=== PATIENT | male | born 1980 | race Caucasian/White ===

== ENCOUNTER 2024-04-30 14:57 | Outpatient (AMB) | payer MEDICARE, MEDICAID, SELFPAY ==
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
== END 2024-04-30 17:04 | disposition home or self-care (01) ==
LOC: HO.HMCFM 14:57
PROVIDERS: PCP Internal Medicine; Visit Provider Internal Medicine
DX: G82.20 Paraplegia, unspecified (principal); E46 Unspecified protein-calorie malnutrition; F33.41 Major depressive disorder, recurrent, in partial remission; L89.90 Pressure ulcer of unspecified site, unspecified stage; G89.4 Chronic pain syndrome

== ENCOUNTER → 2024-04-30 14:57 | Outpatient (BNVA) | payer MEDICARE, MEDICAID, SELFPAY | PROVIDERS: PCP Internal Medicine; Visit Provider Internal Medicine | DX: L89.309 Pressure ulcer of unspecified buttock, unspecified stage (principal); G82.50 Quadriplegia, unspecified; E46 Unspecified protein-calorie malnutrition; G89.4 Chronic pain syndrome; K59.09 Other constipation; F33.41 Major depressive disorder, recurrent, in partial remission; F41.9 Anxiety disorder, unspecified | CPT/HCPCS: 96127 ==

== ENCOUNTER 2025-01-22 16:36 | Outpatient (AMB) | payer MEDICARE, MEDICAID, SELFPAY ==
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
--- OUTSIDE RECORDS SUMMARY | 2025-01-22 18:39 | XMS_ITS | Clinical Summary ---
[facility] Address [address] [place] [address] Care Team Providers Care Research Associate Quality Control Qc Name Role Phone Unavailable Primary Care Provider Unavailabl e Allergies No known active allergies Medications Medication Sig Dispensed Refills Start Date End Date Status apixaban (Eliquis) 5 MG TABS tablet Eliquis 5 mg tablet 0 06/02/2021 A ctive ascorbic acid (VITAMIN C) 500 MG tablet Vitamin C With Gege Hips 500 mg tablet TAKE 1 TABLET BY MOUTH EVERY DAY 0 Active bisacodyl (DULCOLAX) 10 MG suppository Gentle Laxative (bisacodyl) 10 mg rectal suppository UNWRAP & INSERT1 SUPPOSITORY RECTALLY DAILY NEEDED FOR CONSTIPATION FOR 30 DAYS 0 Active buPROPion (ZYBAN) 150 MG 12 hr tablet bupropion HCl 150 mg tablet,12 hr sustained-release(sm oking deterrent) TAKE 1 TABLET BY MOUTH TWICE A DAY 0 Active busPIRone (BUSPAR) 30 MG tablet buspirone 30 mg tablet TAKE 1 TABLET BY MOUTH TWICE A DAY 0 08/02/2013 Active cephalexin (KEFLEX) 500 MG capsule TAKE 1 CAPSULE BY MOUTH 4 TIMES A DAY FOR 7 DAYS 0 09/23/2021 Active citalopram (CeleXA) 40 MG tablet citalopram 40 mg tablet 0 09/02/2014 Active clonazePAM (KlonoPIN) 1 MG tablet PLEASE SEE ATTACHED FOR DETAILED DIRECTIONS 0 08/03/2021 Active doxycycline (VIBRAMYCIN) 100 MG capsule doxycycline hyclate 100 mg capsule 0 Active Docusate Sodium (DSS) 100 MG CAPS docusate sodium 100 mg capsule TAKE 1 CAPSULE BY MOUTH EVERY DAY NEEDED FOR CONSTIPATION 0 08/17/2021 Active DULoxetine HCl 40 MG CPEP duloxetine 40 mg capsule,delayed release 0 Active gabapentin (NEURONTIN) 600 MG tablet gabapentin 600 mg tablet TAKE 2 TABLETS BY MOUTH 3 TIMES A DAY 0 12/26/2014 Active hydrOXYzine (ATARAX) 50 MG tablet hydroxyzine HCl 50 mg tablet TAKE 1 TABLET BY MOUTH 3 TIMES A DAY NEEDED FOR ANXIETY 0 08/25/2021 Active Inulin 1.5 g CHEW Chew 1.5 g by mouth. 0 10/09/2021 Active naproxen (NAPROSYN) 375 MG tablet naproxen 375 mg tablet 0 01/24/2015 Active Nepafenac (Ilevro) 0.3 % SUSP Ilevro 0.3 % eye drops,suspension INSTILL 1 DROP INTO AFFECTED EYE AT BEDTIME DIRECTED 0 Active OLANZapine (ZyPREXA) 5 MG tablet olanzapine 5 mg tablet TAKE 1 TABLET BY MOUTH EVERY DAY 0 10/09/2021 Active oxybutynin (DITROPAN-XL) 10 MG 24 hr tablet oxybutynin chloride ER 10 mg tablet,extended release 24 hr TAKE 1 TABLET BY MOUTH EVERY DAY DIRECTED 0 12/25/2019 Active polyethylene glycol (GaviLyte-G) 236 g solution GaviLyte-G 236 gram-22.74 gram-6.74 gram-5.86 gram oral solution TAKE DIRECTED 0 Active pregabalin (LYRICA) capsule 150 mg pregabalin 150 mg capsule TAKE 1 CAPSULE BY MOUTH TWICE A DAY 0 07/05/2021 Active senna (Senna-Time) 8.6 MG tablet senna 8.6 mg tablet TAKE 2 TABLETS BY MOUTH AT BEDTIME NEEDED FOR CONSTIPATION 0 Active silver sulfADIAZINE (SILVADENE) 1 % cream silver sulfadiazine 1 % topical cream APPLY TO LEFT LEG ULCER EVERY DAY 0 Active tiZANidine (ZANAFLEX) 4 MG tablet See Instructions, Start with 1/2 tab by Mouth Daily at Bedtime and increase as per written instructions, # 90 tablet, Refills 5, Tot. Refills 5, Maintenance, 09/17/21 16:19:00 EST, Instructions Replace Required Details, Route to Pharmacy Electronicall... 0 08/31/2021 Active zinc gluconate 50 MG tablet zinc gluconate 50 mg tablet TAKE 1 TABLET BY MOUTH EVERY DAY NOT COVERED BY INSURANCE 0 Active Buprenorphine HCl (Belbuca) [address] 900 mcg inside cheek every 12 (twelve) hours. 60 each 2 04/24/2024 Active Social History Tobacco Use Types Packs/Day Years Used Date Smoking Tobacco: Every Day Cigarettes 0.5 Smokeless Tobacco: Never Alcohol Use Standard Drinks/Week Comments Not Currently 0 (1 standard drink = 0.6 oz pur e alcohol) Sex and Gender Information Value Date Recorded Sex Assigned at Not on file Gender Identity Not on file Sexual Orientation Not on file Job Start Date Occupation Industry Not on file Not on file Not on file Last Filed Vital Signs Vital Sign Reading Time Taken Comments Blood Pressure 99/68 08/31/2023 10:00 AM EST Pulse 77 08/31/2023 10:00 AM EST Temperature 37.1 ??C (98.7 ??F) 08/31/2023 10:[address] Respiratory Rate - - Oxygen Saturation 98% 08/31/2023 10:00 AM EST Inhaled Oxygen Concentration - - Weight 86.2 kg (190 lb) 08/31/2023 10:00 AM EST Height 177.8 cm (5' 10 ) 08/31/2023 10:00 AM EST Body Mass Index 27.26 08/31/2023 10:00 AM EST Plan of Treatment Health Maintenance Due Date Last Done Comments Hepatitis B Vaccines (1 of 3 - 3-dose series) 1978 Hepatitis C Screening 1978 COVID-19 Vaccine (#1) 1978 Depression Screening 1990 Preventative Health Evaluation 1996 Tobacco Cessation Counseling 1996 Pneumococcal Vaccine (2 of 2 - PCV) 12/25/2015 12/24/2014, 04/03/2009 DTap / Tdap / Td (2 - Td or Tdap) 04/08/2022 04/08/2012 Colon Cancer Screening (Colonoscopy) 2023 Influenza Vaccine (Season Ended) 2025 07/29/2023, 09/01/2021 RSV Ped < 20 months Aged Out No longe r eligible based on patient's age to complete this topic
== END 2025-01-22 17:21 | disposition home or self-care (01) ==
LOC: HO.HMCFM 16:36
PROVIDERS: PCP Internal Medicine; Visit Provider Internal Medicine
DX: G89.4 Chronic pain syndrome (principal); L98.422 Non-pressure chronic ulcer of back with fat layer exposed; G82.20 Paraplegia, unspecified; F33.41 Major depressive disorder, recurrent, in partial remission

== ENCOUNTER → 2025-01-22 16:36 | Outpatient (BNVA) | payer MEDICARE, MEDICAID, SELFPAY | PROVIDERS: PCP Internal Medicine; Visit Provider Internal Medicine ==

== ENCOUNTER 2025-02-20 14:21 | Outpatient (AMB) | payer MEDICARE, MEDICAID, SELFPAY ==
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
[2025-02-20 14:21] VITALS: BP 95/54; PULSE 94; RESP 16; O2SAT 96; BMI 25.1
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
--- OUTSIDE RECORDS SUMMARY | 2025-02-20 15:01 | XMS_ITS | Data Portability ---
Author Organization [place] [facility] Address [address] [place] [id number] Care Team Providers Care Roller Pneumatic Name Role Phone STACAI PERALES Primary Care Provider Assessment Encounter Date Assessment Date Assessment LastModified by Organization Details LastModified Time 10/23/2021 10/23/2021 Overview/History : 41 YO M new to DH and new to provider He is being seen today for L knee wound He has hx of wounds and is seen by wound care once monthly (next visit next Wed ~5 days from today) and he has [facility]NA dress his wounds twice weekly, last visit this am, they come Tues and Fri. He has had this wound for months but reports this has been present for >5 months but reports it has been more painful and has been draining more lately. His nurse called this am for concerns of possible wound infx. Otherwise he has no othr acute complaints. He has hx of poor wound healing thus why he goes to wound care. He denies fever/chills, lethargy, barrett, AMS. No other assoc sx's or concerns at this time. Exam: Vitals: VSS and afebrile, his BP is slightly soft but he is asx and he reports it is chronically in the 90's (SBP today was 96) Constitutional: 41 yo bed bound M laying comfortably in bed laying on his side. He does not appear toxic and is in NAD. Eyes: No swelling, no discharge, sclera / conjunctiva clear ENT: no nasal discharge, no erythema/ exudate noted in oropharynx, moist mucous membranes CV: Normal HR, reg rhythm, 2+ radial pulses bilaterally, no edema and no calf tenderness, 2+ DP/ PT pulses bilaterally Pulm: Speaks in full sentences, no increased work of breathing. : Urostomy ube draining CYU and tube site appears well w/o evidence of infx MS: no evidence of trauma Neuro: Hx spinal cord injury w/ loss of strength to his BLE, able to move arms, decreased sensation lower part of body, A&O x4 Skin: L knee wound visualised and has small amt of discoloration/re dness surrounding. No drainage noted from the wound. There is some skin flap of old skin covering part of it but wound overall appears fairly superficial. Not very warm surrounding wound. No other issues noted. + Cap refill to BL toes. No cyanosis or pallor. Psych: Calm, cooperative, non-manic. Pleasant. DDx considered, but not limited to: Wound infx - ML diagnosis, there is some discoloration around his wound. Might have some warmth but he was just under multiple pillows and blankets so hard to tell if skin or not. Tx w/ abx given hx of poor wound healing and appearance. Osteomyelitis - considered but wound seems more superficial vs deep. Doubt it track to bone but he does have hx of chronic osteo at other parts of his body. He is to discuss this with wound care on Tuesday, doubt any imaging or lab studies would be of utility at this time given wound seems more superficial. This seems very unlikely based on appearance at this time. Septic Arthritis - joint is not erythematous or wound. Coloration is only localized to around wound. No evidence of jt space infx at this time Sepsis - BP little soft but at baseline per his report. He has no fever, may have mild wound infx but otherwise does not seem to have any other evidence of severe infx. He has no fever and all other VSS. Very unlikely. Work up/Results: N/a Plan/Discussion: Mild wound infx: -Wound appears that it could be mildy infx at this time as per above -D/t this tx with doxycycline, has been hospitalized earlier this year so higher MRSA risk -Given first dose on scene and no evidence of rxn or issue 15 mins after taking -finish 10 day course -Cont w/ [facility] nursing and wound care -F/u with wound clinic as scheduled -VSS and he has no fever -Monitor site and f/u if worsens -He may need wound debridement at wound care on Tue and he reports that they usually have to debride some of his wounds when he goes -F/u emergently for any cp, SOB, AMS, lethargy, worsening wound pain or appearance, spreading redness or warmth. -We did perform wound care on scene and I applied a layer of bacitracin, gauze, then foam bandage, and taped it down with tape since it is in an area that does not stick as well Pt mother comes inside just before we leave scene and he gives us permission to speak to her about all of the above. Pt and mother is on agreement and verbalizes understanding with the above plans at this time. Pt and mother has no other questions or concerns at this time. All questiosn are answered to the best of my ability. Pt and mother thanks us for our visit today. In order to obtain further information and compare any laboratory results/values, I have accessed [employer]. This information was pertinent in my medical decision making today. [email or web address] Not available 10/23/2021 18:01:53 Plan of Treatment Reminders Order Date Submit Date Provider Last Modified By Organization Details Last Modified Time Details Appointments None recorded. Lab None recorded. Referral None recorded. Procedures None recorded. Surgeries None recorded. Imaging None recorded. Medication Orders doxycycline hyclate 100 mg capsule 2021 022 LAUREEN [id number], [address] [place], [address], 17:18:32 doxycycline hyclate 100 mg capsule 2021 022 crumplik [id number], [address] [place], [address], 17:18:27 Patient TargetsNo targets recorded. Patient InstructionsNo instructions recorded. Reason for Referral None Reported. Procedures Surgical History Date Name Laterality Status Provider Name and Address Organization Details Recorded Time construction of external stoma of urinary system completed KEVIN Luther [address], [place], [address], [place] - [facility] 10/23/2021 16:01:06 Imaging Results None recorded. Procedure Notes None recorded. Medical Equipment None Reported. Allergies No known drug allergies Medications Name Sig Start Date Stop Date Status Note LastModified by Organization Details LastModified Time silver sulfadiazin e 1 % topical cream APPLY TO LEFT LEG ULCER EVERY DAY active Not Available Not Available No t Available bupropion HCl SR 150 mg tablet,12 hr sustained-r elease 10/23 completed Not Available Not Available Not Available gabapentin 600 mg tablet TAKE 2 TABLETS BY MOUTH 3 TIMES A DAY active Not Available Not Available No t Available doxycycline hyclate 100 mg capsule Patient give 1 capsule of 100 mg of doxycycli ne PO at 430 pm active Not Available Not Available No t Available naproxen 375 mg tablet active Not Available Not Available Not Available citalopram 40 mg tablet TAKE 1 TABLET BY MOUTH EVERY DAY active Not Available Not Available No t Available oxybutynin chloride ER 10 mg tablet,exte nded release 24 hr TAKE 1 TABLET BY MOUTH EVERY DAY DIRECTED active Not Available Not Available No t Available tizanidine 4 mg tablet START WITH 1/2 TAB BY MOUTH DAILY AT BEDTIME AND INCREASE PER WRITTEN INSTRUCTI ONS 10/23 completed Not Available Not Available Not Available ampicillin 500 mg capsule 10/23 completed Not Available Not Available Not Available senna 8.6 mg tablet TAKE 2 TABLETS BY MOUTH AT BEDTIME NEEDED FOR CONSTIPAT ION active Not Available Not Available No t Available phenazopyri dine 200 mg tablet 10/23 completed Not Available Not Available Not Available olanzapine 5 mg tablet TAKE 1 TABLET BY MOUTH EVERY DAY active Not Available Not Available No t Available clonazepam 1 mg tablet PLEASE SEE ATTACHED FOR DETAILED DIRECTION S 10/23 completed Not Available Not Available Not Available hydroxyzine HCl 50 mg tablet TAKE 1 TABLET BY MOUTH 3 TIMES A DAY NEEDED FOR ANXIETY active Not Available Not Available No t Available sulfamethox azole 800 mg-trimetho prim 160 mg tablet 10/23 completed Not Available Not Available Not Available oxycodone-a cetaminophe n 5 mg-325 mg tablet 10/23 completed Not Available Not Available Not Available citalopram 20 mg tablet active Not Available Not Available Not Available cephalexin 500 mg capsule TAKE 1 CAPSULE BY MOUTH 4 TIMES A DAY FOR 7 DAYS 10/23 completed Not Available Not Available Not Available buspirone 30 mg tablet TAKE 1 TABLET BY MOUTH TWICE A DAY active Not Available Not Available No t Available clonazepam 2 mg tablet 10/23 completed Not Available Not Available Not Available docusate sodium 100 mg capsule TAKE 1 CAPSULE BY MOUTH EVERY DAY NEEDED FOR CONSTIPAT ION active Not Available Not Available No t Available zinc gluconate 50 mg tablet TAKE 1 TABLET BY MOUTH EVERY DAY NOT COVERED BY INSURANCE active Not Available Not Available No t Available levofloxaci n 750 mg tablet 10/23 completed Not Available Not Available Not Available dicyclomine 10 mg capsule TAKE 1 CAPSULE BY MOUTH 4 TIMES A DAY 10/23 completed Not Available Not Available Not Available oxycodone 5 mg tablet TAKE 1 TABLET BY MOUTH EVERY 8 HOURS NEEDED FOR PAIN FOR 10 DAYS 10/23 completed Not Available Not Available Not Available Gentle Laxative (bisacodyl) 10 mg rectal suppository UNWRAP & INSERT1 SUPPOSITO RY RECTALLY DAILY NEEDED FOR CONSTIPAT ION FOR 30 DAYS active Not Available Not Available No t Available Vitamin C With Gege Hips 500 mg tablet TAKE 1 TABLET BY MOUTH EVERY DAY active Not Available Not Available No t Available nitrofurant oin monohydrate /macrocryst als 100 mg capsule 10/23 completed Not Available Not Available Not Available lactulose 10 gram/15 mL oral solution TAKE 30 ML BY MOUTH DAILY X30 DAYS active Not Available Not Available No t Available pregabalin 75 mg capsule active Not Available Not Available Not Available pregabalin 150 mg capsule TAKE 1 CAPSULE BY MOUTH TWICE A DAY active Not Available Not Available No t Available quetiapine 50 mg tablet active Not Available Not Available Not Available GaviLyte-G 236 gram-22.74 gram-6.74 gram-5.86 gram oral solution TAKE DIRECTED active Not Available Not Available No t Available Gavilax 17 gram/dose oral powder DISSOLVE 17 GM IN WATER AND TAKE BY MOUTH DAILY,X30 DAYS active Not Available Not Available No t Available Ilevro 0.3 % eye drops,suspe nsion INSTILL 1 DROP INTO AFFECTED EYE AT BEDTIME DIRECTED active Not Available Not Available No t Available Eliquis 5 mg tablet TAKE 1 TABLET BY MOUTH TWICE A DAY active Not Available Not Available No t Available duloxetine 40 mg capsule,del ayed release active Not Available Not Available Not Available Belbuca [address]M INSIDE CHEEK EVERY 12 HOURS active Not Available Not Available No t Available bupropion HCl 150 mg tablet,12 hr sustained-r elease(smok ing deterrent) TAKE 1 TABLET BY MOUTH TWICE A DAY active Not Available Not Available No t Available multivitami n with minerals-fe rrous fumarate 15 mg iron tablet TAKE 1 TABLET BY MOUTH EVERY DAY active Not Available Not Available No t Available Vitals Date Recorded Body temperature Respiratory rate Heart rate Oxygen saturation Oxygen saturation in Arterial blood by Pulse oximetry Systolic And Diastolic Provider Name and Address Organization Details Last Updated DateTime 2 97.3 [degF] 16 /min 76 /min 98 % 98 % 96/46 mm[Hg] Not Available [facility] 2 15:57:49 Social History Question Answer Notes LastModified by [employer] Details LastModified Time Tobacco Smoking Status Never Smoker KEVIN Luther [address], [place], [address], [place] [facility] 10/23/2021 16:00:52 Which Illicit Or Recreational Drugs Have You Used? Marijuana Information not available 10/23/2021 Sex: Unknown Functional Status Question Answer Note LastModified by [employer] Details LastModified Time Do you use any illicit or recreational drugs? Yes Information not available 10/23/2021 Do you or have you ever used any other forms of tobacco or nicotine? No Information not available 10/23/2021 What is your level of alcohol consumption? None Information not available 10/23/2021 Mental Status None recorded. Family History Relationship Description Onset Age of this Age Resolved Age Notes LastModified by Organization Details LastModified Time Mother Acne seems she was follow ed by derm for someth ing like this [email or web address] Not available 10/23/2021 16:00:23 Medical History Condition Response Diabetes N Coronary Artery Disease N CHF N Parkinson's Disease N Cancer N Stroke N Dementia N Asthma N Hypothyroidism N Depression N COPD N High Cholesterol N Rheumatoid Arthritis N Pulmonary Embolism Y Hypertension N A-fib N Osteoporosis N Kidney Disease N Past Encounters Encounter ID Performer Location Encounter Start Date Encounter Closed Date Diagnosis/Indication Diagnosis SNOMED-CT Code Diagnosis ICD10 Code Diagnosis Note [id number] KEVIN Marroquin [facility] [address] [place] [address] 10/23/2021 15:03:16 10/26/2021 10:36:48 Local infection of wound [id number] T14.90XD Health Concerns Section Related Observation LastModified by Organization Detai ls LastModified Time None Recorded Concern Status LastModified by Organization Details LastModified Time None Recorded Advance Directives Directive None Recorded Payers Insurance Date Sequence Insurance Name Policy Number Policy Chinchilla Covered Member ID Chinchilla Member ID Guarantor Name 10/23/2021 1 *SELF PAY* [place] [id number] [place] 10/23/2021 2 [place] [id number] Ned Hill 10/26/2021 1 [place] [employer] [place] [id number] [place] Notes Date Note Type Note Provider Name a nd Address Organization Details Recorded Time 10/23/2021 text/html 41 YO M new to DH and new to providerHe is being seen today for L knee woundHe has hx of wounds and is seen by wound care once monthly (next visit next Wed ~5 days from today) and he has VNA dress his wounds twice weekly, last visit this am, they come Tues and Fri.He has had this wound for months but reports this has been present for >5 months but reports it has been more painful and has been draining more lately. His nurse called this am for concerns of possible wound infx. Otherwise he has no othr acute complaints. He has hx of poor wound healing thus why he goes to wound care. He denies fever/chills, lethargy, barrett, AMS. No other assoc sx's or concerns at this time. KEVIN Luther [facility] [place], [address], [place] [facility] 10/23/2021 18:02:09
--- OUTSIDE RECORDS SUMMARY | 2025-02-20 15:01 | XMS_ITS ---
Author Name [facility] Organization Unknown Encounters Encounter Type Encounter Reason Primary Diagnosis Location Date Ambulatory [facility] 07/27/2024 Care Team Organization Name Specialty Phone Email Start Date End Da te [facility] 2024
--- OUTSIDE RECORDS SUMMARY | 2025-02-20 15:01 | XMS_ITS | Clinical Summary ---
[facility] Address [address] [place] [address] Care Team Providers Care Climate Change Analyst Name Role Phone Unavailable Primary Care Provider [...] 75 08/31/2023 10:00 AM EST Temperature 37.1 C (98.7 F) 08/31/2023 10:00 AM EST Respiratory Rate - - Oxygen Saturation 98% [...] Colon Cancer Screening (Colonoscopy) 2023 Influenza Vaccine (#1) 2025 3, 09/01/2021 RSV Ped < 20 months Aged Out No longe r eligible based on patient's age to complete this topic
== END 2025-02-20 14:59 | disposition home or self-care (01) ==
PROVIDERS: PCP Internal Medicine; Referring Provider Internal Medicine; Visit Provider Registered Nurse Emergency
DX: G82.20 Paraplegia, unspecified (principal); G89.4 Chronic pain syndrome; M24.521 Contracture, right elbow; M62.838 Other muscle spasm
CPT/HCPCS: 99204; G2211

== ENCOUNTER → 2025-02-20 14:21 | Outpatient (BNVA) | payer MEDICARE, MEDICAID, SELFPAY | PROVIDERS: PCP Internal Medicine; Referring Provider Internal Medicine; Visit Provider Registered Nurse Emergency | DX: G89.4 Chronic pain syndrome (principal); G82.20 Paraplegia, unspecified; M24.521 Contracture, right elbow; M62.838 Other muscle spasm | CPT/HCPCS: 99202 ==